=== PATIENT | female | born 1980 | race Caucasian/White ===

== ENCOUNTER 2017-02-12 11:53 | Day surgery (SDC) | payer OTHER, SELFPAY | END 2017-02-12 12:15 | PROVIDERS: Family Provider Emergency Medicine; Visit Provider Nurse Anesthetist, Certified Registered | DX: M51.16 Intervertebral disc disorders with radiculopathy, lumbar region (principal) | CPT/HCPCS: 62322; 62323; J1040; Q9966 ==

== ENCOUNTER 2017-11-14 22:07 | Emergency (ER) | payer OTHER, SELFPAY | END 2017-11-15 00:28 | disposition home or self-care (01) | PROVIDERS: Emergency Provider Emergency Medicine; Visit Provider Emergency Medicine | DX: N30.00 Acute cystitis without hematuria (principal); S39.011A Strain of muscle, fascia and tendon of abdomen, initial encounter; F17.210 Nicotine dependence, cigarettes, uncomplicated | CPT/HCPCS: 96372; 99283 ==

== ENCOUNTER → 2017-11-19 12:47 | Outpatient (POV) | payer OTHER, SELFPAY ==
[2017-11-19 13:01] VITALS: BP 155/108; PULSE 86; RESP 16; O2SAT 97; BMI 34.7
--- NOTE | 2017-11-19 13:08 | HMH.PAINSOAP ---
[facility] Pain Management SOAP Note Subjective:: This patient is a pleasant 37-year-old white female who we are treating for low back pain with lumbar radiculopathy symptoms. She was scheduled for lumbar epidural steroid injection last month however she had transportation issues and could not make it to that appointment. She still has some low back pain radiating down both legs. I do believe that she would benefit from a lumbar epidural steroid injection. She has failed all previous conservative measures including family day care provider, physical therapy and anti-inflammatory medications. She is currently on gabapentin which is helping. We will seek approval and plan on a repeat lumbar pleural steroid injection under fluoroscopy at L5-S1. Objective:: Alert and oriented ?3 in no acute distress. Motor strength of the lower extremities is 5/5. There is no gross sensory deficit. The patient does have a normal gait. Assessment:: Degenerative disc disease of lumbar spine with lumbar radiculopathy symptoms and bulging disc at L5-S1 Plan:: We will seek approval and plan on a repeat lumbar pleural steroid injection under fluoroscopy at L5-S1.
== END ==
PROVIDERS: Visit Provider Anesthesiology
DX: M51.16 Intervertebral disc disorders with radiculopathy, lumbar region (principal)
CPT/HCPCS: 99212

== ENCOUNTER 2017-11-26 14:35 | Day surgery (SDC) | payer OTHER, SELFPAY ==
[2017-11-26 15:38] VITALS: BP 136/84; PULSE 86; RESP 18; TEMP 36.4
[2017-11-26 15:48] VITALS: BP 173/98; PULSE 88; RESP 20
[2017-11-26 15:49] VITALS: BP 156/96; PULSE 86; RESP 20
--- NOTE | 2017-11-26 15:56 | P.PCN_ITS ---
- Procedure Date: 11/26/17 Time: 15:54 Anesthesiologist:: Zohaib Garibay CRNA Complications:: None Pre-procedure Diagnosis:: Degenerative disc disease lumbar spine. Lumbar radiculopathy symptoms per Post-procedure Diagnosis:: Same Indications for Procedure:: Very pleasant 37-year-old white female that responded extremely well to lumbar epidural steroid injections in the past. She presents today to our procedure clinic for lumbar epidural steroid injection at the L4-5 level. Patient describes her low back pain as constant, dull, aching Procedure Details:: Procedure: Lumbar epidural steroid injection under fluoroscopy Informed consent was obtained and the risks and benefits of the procedure were explained to the patient. The patient was taken to the procedure room and noninvasive monitors placed, including noninvasive blood pressure cuff and pulse oximeter. The back was viewed using C-arm Fluoroscopy and prepped using Betadine as a cleansing solution and the L4-L5 interspace was palpated. Skin and subcutaneous tissues were anesthetized using lidocaine 1.5% and a 25-gauge needle. After this, an 18-gauge Touhy epidural needle was placed into the L4-L5 interspace and advanced using fluoroscopic guidance and loss of resistance to air until the epidural space was encountered. After confirmation of needle placement in the epidural space, with dye, a solution containing lidocaine 1.5% , 4 mL and Depo-Medrol 80 mg were incrementally injected into the lumbar epidural space. The patient tolerated the procedure well with no complications. The patient was observed in the Pain Clinic and then discharged home neurologically intact. Plan and Disposition:: Patient was reevaluated 10 minutes post procedure. She is doing very well. She will return to see some pain clinic for further evaluation
[2017-11-26 16:23] VITALS: BP 150/94; PULSE 81; RESP 18; O2SAT 98
== END 2017-11-26 15:55 | disposition home or self-care (01) ==
LOC: SC.PAINP 14:38
PROVIDERS: Family Provider Emergency Medicine; Visit Provider Nurse Anesthetist, Certified Registered
DX: M51.16 Intervertebral disc disorders with radiculopathy, lumbar region (principal)
CPT/HCPCS: 62323; J1040; Q9966

== ENCOUNTER 2017-12-04 14:01 | Emergency (ER) | payer OTHER, SELFPAY ==
[2017-12-04 14:20] VITALS: BP 130/89; PULSE 107; RESP 18; TEMP 36.5; O2SAT 97; BMI 34.5
--- NOTE | 2017-12-04 15:12 | HMH.EDGENADL ---
ED Disposition Clinical Impression: Influenza Disposition: Home, Self-Care Condition on Discharge: Good Instructions: Influenza, DI for Nausea -- Adult Additional Instructions: Drink plenty of fluids, take the medications prescribed as directed, follow-up with PCP if no better within 2 days. Prescriptions: Oseltamivir Phosphate [Tamiflu 75mg Capsule] 75 mg PO BID #10 cap Referrals: Provider,Referral, MD [Primary Care Provider] - Time of Disposition: 15:13 - Critical Care Critical Care Time: No Attestation: On 12/04/17, the high probability of a clinically significant, sudden or life threatening deterioration of the following system(s) required my full and direct attention, intervention and personal management. The time I documented below is in addition to time spent performing reported procedures but includes the following listed in this critical care notation. Medical Decision Making - Medical Records Medical records reviewed: Yes: I reviewed the patient's medical records. Vital Signs: 12/04/17 14:20 12/04/17 15:19 Temperature 97.7 F 98.4 F Temperature Source Oral Pulse Rate 82 Pulse Rate [Right Brachial] 107 H Respiratory Rate 18 18 Blood Pressure 118/76 Blood Pressure [Right Arm] 130/89 Blood Pressure Mean [Right Arm] 102 Blood Pressure Source [Right Arm] Automatic Cuff Blood Pressure Position [Right Arm] Sitting 02 Sat by Pulse Oximetry 97 Oxygen Delivery Method Room Air - Lab Data Lab results reviewed: Yes: I reviewed the patient's lab results. Lab Results 12/04/17 14:30: Influenza Type A Ag Negative, Influenza Type B Ag Negative - [place] Inquiry Pt receiving controlled substance: No - Reevaluation(s) Time: 15:00 Reevaluation #1: Upon evaluation patient appears afebrile, in no acute distress, medically stable. Advice of results obtained, also need to cover her with Tamiflu as she has been exposed to influenza. She will alternate Motrin Tylenol for body aches and fever control, follow-up with PCP if not better within 2 days. General Adult HPI - General Chief complaint: Nausea/Vomiting/Diarrhea Stated complaint: ACHING ALL OVER VOMITING Time Seen by Provider: 12/04/17 14:45 Mode of Arrival: Ambulatory Source of Information: Patient Limitations: No Limitations Description of Symptoms (Recalled from ER Triage Doc. by RN): c/o bodyaches, vomiting, cough - History of Present Illness HPI narrative: There is a 37-year-old female patient presented to the emergency room with sore throat and congestion for the past 48 hours, has recently been exposed to sick family member diagnosed with influenza. Patient denies any recent travel. She has subjective fever, nonproductive cough, denies any shortness of breath. MD complaint: Sore throat, runny nose, subjective fever Onset (ago): day(s) (2) Location: head Radiation: non-radiation Severity: mild Severity scale (1-10): 2 Quality: aching Consistency: intermittent Relieving factors: none Associated symptoms: cough, fever/chills. negative: shortness of breath - Related Data Previous Rx's Medication Instructions Recorded Oseltamivir Phosphate [Tamiflu 75 mg PO BID #10 cap 12/04/17 75mg Capsule] Allergies Allergy/AdvReac Type Severity Reaction Status Date / Time No Known Allergies Allergy Verified 12/04/17 14:28 [facility] History I have reviewed the patient's past medical history: Yes Medical History: Denies:: Cancer, Diabetes Mellitus Type 1, Diabetes Mellitus Type 2, MRSA, Seizures Other Medical History: Reports: Arthritis, Sinus Problems. Denies: Blood Transfusion Reaction Other Surgeries: Yes: Sinus Surgery, Tubal Ligation, Ureter Stent Amputation: No Fractures: No - *Social History Smoking Status: Current every day smoker Tobacco Type: cigarettes Alcohol Intake: never Occupational Status: unemployed Housing: house - Psychiatric History Expresses thoughts of harming self/others: No
[2017-12-04 15:19] VITALS: BP 118/76; PULSE 82; RESP 18; TEMP 36.9; O2SAT 96
== END 2017-12-04 15:21 | disposition home or self-care (01) ==
PROVIDERS: Emergency Provider Emergency Medicine; Family Provider Emergency Medicine
DX: J11.1 Influenza due to unidentified influenza virus with other respiratory manifestations (principal); F17.210 Nicotine dependence, cigarettes, uncomplicated
CPT/HCPCS: 87275; 87276; 99282

== ENCOUNTER → 2018-09-01 09:45 | Outpatient (POV) | payer OTHER, SELFPAY ==
[2018-09-01 10:02] VITALS: BP 149/95; PULSE 89; RESP 18; O2SAT 98; BMI 30.2
--- NOTE | 2018-09-01 10:57 | P.CONS_ITS ---
[facility] Pain Management SOAP Note Subjective:: Patient is a pleasant 37-year-old white female who presents today for follow-up. Patient states that she has had worsening back pain and radicular symptoms. Patient is now having right leg pain along with right leg weakness. Patient does not have a recent MRI. I believe the patient may need to see a neurosurgeon. We will get an updated MRI for her. Patient is also on gabapentin however she is not on her current anti-inflammatory regimen. We will start her on one. Patient rates her pain a 7 out of 10 ROS General: no recent weight change, no fever, no sleep disturbances Respiratory: no cough, no shortness of air, no recurring pulmonary infections Cardiovascular/Peripheral Vascular: No chest pain, No palpitations, no edema, no shortness of breath. Gastrointestinal: no incontinence, normal bowel movements reported Genitourinary: no incontinence Musculoskeletal: Back pain, leg pain Psychiatric: normal mood/ affect, [denies depression], [denies anxiety] Neurological: Weakness in the right leg, [denies balance issues] Objective:: Physical Exam General: Alert and oriented x3, no acute distress, pleasant and cooperative, [on room air] Lungs: Resps E/U, Symmetrical chest expansion, Eyes: PERRL Musculoskeletal: Flexion and extension of lumbar spine somewhat guarded secondary to pain, deep tendon reflexes normal, strength in upper and lower extremities [5/5], [abnormal gait noted] Neurological: speech clear, cleaner carpet and upholstery equal, no gross sensory deficits Assessment:: Degenerative disc disease lumbar spine with lumbar radiculopathy Plan:: Schedule lumbar MRI for the patient due to her new symptoms I believe that will be beneficial. Patient might need a neurosurgical consultation. We will also call in 30 mg 1 p.o. daily along with her gabapentin 300 mg 1 p.o. 3 times daily. Follow-up with the patient after her MRI. Dr. Estrada is reviewed this chart and agrees with this plan of care. This note was dictated using voice recognition software and may contain errors or omissions
== END ==
PROVIDERS: Family Provider Emergency Medicine; Visit Provider Clinical Nurse Specialist Family Health
DX: M51.16 Intervertebral disc disorders with radiculopathy, lumbar region (principal)
CPT/HCPCS: 99213

== ENCOUNTER → 2018-09-12 15:34 | Outpatient (CLI) | payer OTHER, SELFPAY ==
--- NOTE | 2018-09-12 15:37 | MR_ITS ---
MR lumbar spine wo con, MR 3-d myelogram/MRCP Ordering Physician: Rachael Barraza Patient Age: 37 years: Female HISTORY: ITS.REASON: BACK PAIN low back pain for years bilateral hip and leg pain and some numbness and tingling. TECHNIQUE: Sagittal STIR, T1, T2, axial T1 and T2. On 1.5T Siemens wide bore MRI. 3-D MR myelogram image set obtained & performed on MRI workstation. Additional sagittal thin section T2 weighted dataset obtained from this latter acquisition as well (---76 CPT). No contrast utilized today COMPARISON :.. August 2014 MRI.. February 2014.r plain films lumbar spine CT abdomen pelvis 01/29/2017 FINDINGS The lumbar vertebral bodies are intact with no compression fracture or lesion. The conus ends appropriately at L1/L2 level L5/S1.:. Moderate broad-based right paracentral disc protrusion also slightly pronounced today than previous MR August 2014 comparison study. This Disc protrusion extends just over 7 mm mm posteriorly, and nearly 14 mm at its base. It effaces/ indents the rightAnterior aspect & corner of thecal sac. It displaces the right S1 and S2 nerve root here.. It yields moderate/generous encroachment upon the right recess and entrance to the right foramen.-Which may have impacted the right L5 nerve root. Mild facet hypertrophy bilaterally.. L4/5. Asymmetric disc bulge, with mild broad-based disc protrusion to the left yields moderate encroachment upon the left recess and left foramen. Very Slightly effaces anterior left corner and aspect of thecal sac where a could potentially impact left L5 and possibly left S1 nerve root.. Scant facet arthropathy L3/4. Disc intact. L2/3. Disc intact. L1/2. Disc intact.... T12/L1, T11/12 disc intact. Unremarkable. 3-D MR myelogram image set demonstrates: Mild anterior indentation upon thecal sac to the right L5/S1 noted,. Scant anterior indentation the thecal sac to the left at L4/5. IMPRESSION: ...... L5/S1. Broad-based moderate size right paracentral disc protrusion. Slightly more prominent than 2013.. Effaces thecal sac to the right, With moderate encroachment right recess & entry right foramen.- This disc protrusion displaces the right S1 & S2 nerve root posteriorly; and or could also possibly affect right L5 nerve root at foramen. Clinical correlation required Neurosurgical consult warranted L4/5. Asymmetric leftward disc bulge-with minimal broad-based disc protrusion towards to the left continuing through left foramen.. Yields Moderate encroachment left foramen. And slightly effaces left anterior corner of thecal sac. Findings have progressed somewhat since 2014 MR.
== END ==
PROVIDERS: PCP Nurse Practitioner Family; Visit Provider Clinical Nurse Specialist Family Health
DX: M54.9 Dorsalgia, unspecified (principal)
CPT/HCPCS: 72148; 76376

== ENCOUNTER → 2018-09-15 10:37 | Outpatient (POV) | payer OTHER, SELFPAY ==
[2018-09-15 10:52] VITALS: BP 141/91; PULSE 70; RESP 18; O2SAT 98; BMI 30.2
--- NOTE | 2018-09-15 12:02 | HMH.PAINSOAP ---
[facility] Pain Management SOAP Note Subjective:: Patient is a pleasant 37-year-old white female who presents today for follow-up after her new MRI. Patient does have L5-S1 moderate broad-based right paracentral disc protrusions along with disc protrusion indenting the right anterior aspect and corner of the thecal sac and displaces the right S1 and S2 nerve roots. This is per the radiology report. Patient and I had a discussion in regards to her next step. We will send her for neurosurgical consultation. Patient has not been seen by neurosurgeon previously. Patient was made aware that she needs to receive her radiology disc. She rates her pain a 7 out of 10 today. ROS General: no recent weight change, no fever, no sleep disturbances Respiratory: no cough, no shortness of air, no recurring pulmonary infections Cardiovascular/Peripheral Vascular: No chest pain, No palpitations, no edema, no shortness of breath. Gastrointestinal: no incontinence, normal bowel movements reported Genitourinary: no incontinence Musculoskeletal: Back pain, leg pain Psychiatric: normal mood/ affect Neurological: [denies weakness in extremities], [denies balance issues] Objective:: Physical Exam General: Alert and oriented x3, no acute distress, pleasant and cooperative, [on room air] Lungs: Resps E/U, Symmetrical chest expansion, Eyes: PERRL Musculoskeletal: Flexion and extension of lumbar spine somewhat guarded secondary to pain, deep tendon reflexes normal, strength in upper and lower extremities [5/5], [abnormal gait noted] Neurological: speech clear, site safety coordinator equal, no gross sensory deficits Assessment:: Degenerative disc disease lumbar spine with lumbar radiculopathy Plan:: We will schedule her to be seen at [facility] as far as a neurosurgical consult in [place]. Patient states this is much closer to her. I will follow-up with the patient on an as-needed basis after her consultation. This note was dictated using voice recognition software and may contain errors or omissions
--- NOTE | 2018-09-15 12:07 | P.CONS_ITS ---
[facility] Pain Management SOAP Note Subjective:: Patient is a pleasant 37-year-old white female who presents today for follow-up after her new MRI. Patient does have L5-S1 moderate broad-based right paracentral disc protrusions along with disc protrusion indenting the right anterior aspect and corner of the thecal sac and displaces the right S1 and S2 nerve roots. This is per the radiology report. Patient and I had a discussion in regards to her next step. We will send her for neurosurgical consultation. Patient has not been seen by neurosurgeon previously. Patient was made aware that she needs to receive her radiology disc. She rates her pain a 7 out of 10 today. ROS General: no recent weight change, no fever, no sleep disturbances Respiratory: no cough, no shortness of air, no recurring pulmonary infections Cardiovascular/Peripheral Vascular: No chest pain, No palpitations, no edema, no shortness of breath. Gastrointestinal: no incontinence, normal bowel movements reported Genitourinary: no incontinence Musculoskeletal: Back pain, leg pain Psychiatric: normal mood/ affect Neurological: [denies weakness in extremities], [denies balance issues] Objective:: Physical Exam General: Alert and oriented x3, no acute distress, pleasant and cooperative, [on room air] Lungs: Resps E/U, Symmetrical chest expansion, Eyes: PERRL Musculoskeletal: Flexion and extension of lumbar spine somewhat guarded secondary to pain, deep tendon reflexes normal, strength in upper and lower extremities [5/5], [abnormal gait noted] Neurological: speech clear, energy advisor equal, no gross sensory deficits Assessment:: Degenerative disc disease lumbar spine with lumbar radiculopathy Plan:: We will schedule her to be seen at [facility] as far as a neurosurgical consult in [place]. Patient states this is much closer to her. I will follow- up with the patient on an as-needed basis after her consultation. This note was dictated using voice recognition software and may contain errors or omissions
== END ==
PROVIDERS: PCP Nurse Practitioner Family; Visit Provider Clinical Nurse Specialist Family Health
DX: M51.16 Intervertebral disc disorders with radiculopathy, lumbar region (principal)
CPT/HCPCS: 99213

== ENCOUNTER → 2019-06-30 09:38 | Outpatient (POV) | payer OTHER, SELFPAY ==
[2019-06-30 09:52] VITALS: BP 150/89; PULSE 87; RESP 18; O2SAT 98; BMI 31.1
--- NOTE | 2019-06-30 10:12 | HMH.PAINSOAP ---
[facility] Pain Management SOAP Note Subjective:: She is a pleasant 38-year-old white female who we have not seen for about a year. Patient states that she went with a man to [place] however it did not work out so she called her ex- to come get her. Since then she is now returned she states her pain is a 7 out of 10 in her low back and legs. Patient states she is not interested in injective therapy since they make it worse . Patient was sent to Dr. Palomino for evaluation however she states she does not remember this. Patient no showed for appointment with Dr. Palomino. Patient is currently on gabapentin 300 mg 1 p.o. 3 times daily. She denies side effects from medication. [facility] #[id number] she has not been taking an anti-inflammatory medication. ROS General: no recent weight change, no fever, no sleep disturbances Respiratory: no cough, no shortness of air, no recurring pulmonary infections Cardiovascular/Peripheral Vascular: No chest pain, No palpitations, no edema, no shortness of breath. Gastrointestinal: no incontinence, normal bowel movements reported Genitourinary: no incontinence Musculoskeletal: Back pain, leg pain Psychiatric: normal mood/ affect, [denies depression], [denies anxiety] Neurological: [denies weakness in extremities], [denies balance issues] Objective:: Physical Exam General: Alert and oriented x3, no acute distress, pleasant and cooperative, [on room air] Lungs: Resps E/U, Symmetrical chest expansion, Eyes: PERRL Musculoskeletal: Flexion and extension of lumbar spine somewhat guarded secondary to pain, deep tendon reflexes normal, strength in upper and lower extremities [5/5], [abnormal gait noted] Neurological: speech clear, desk interviewer equal, no gross sensory deficits Assessment:: Degenerative disc disease lumbar spine with lumbar radiculopathy Plan:: We will set her up an appointment with Dr. Palomino I explained to her she has to go to this appointment. We will start her on diclofenac 75 mg 1 p.o. twice daily along with gabapentin 300 mg 1 p.o. 4 times daily. We will see the patient back after her consultation and reassess her symptoms at that time. She is been instructed to call the office if she has any issues prior to his next appointment. Dr. Estrada has reviewed this note and agrees with this plan of care. This note was dictated using voice recognition software and may contain errors or omissions Pain Management Hx Components *Have you ever received a pneumonia vaccine?: No *Have you received a flu vaccine this season?: No - *Social History *Occupational Status:: other *Travel in the last 8 weeks: None
--- NOTE | 2019-06-30 10:16 | P.CONS_ITS ---
[facility] Pain Management SOAP Note Subjective:: She is a pleasant 38-year-old white female who we have not seen for about a year. Patient states that she went with a man to [place] however it did not work out so she called her ex- to come get her. Since then she is now returned she states her pain is a 7 out of 10 in her low back and legs. Patient states she is not interested in injective therapy since they make it worse . Patient was sent to Dr. Palomino for evaluation however she states she does not remember this. Patient no showed for appointment with Dr. Palomino. Patient is currently on gabapentin 300 mg 1 p.o. 3 times daily. She denies side effects from medication. [facility] #[id number] she has not been taking an anti-infla mmatory medication. ROS General: no recent weight change, no fever, no sleep disturbances Respiratory: no cough, no shortness of air, no recurring pulmonary infections Cardiovascular/Peripheral Vascular: No chest pain, No palpitations, no edema, no shortness of breath. Gastrointestinal: no incontinence, normal bowel movements reported Genitourinary: no incontinence Musculoskeletal: Back pain, leg pain Psychiatric: normal mood/ affect, [denies depression], [denies anxiety] Neurological: [denies weakness in extremities], [denies balance issues] Objective:: Physical Exam General: Alert and oriented x3, no acute distress, pleasant and cooperative, [on room air] Lungs: Resps E/U, Symmetrical chest expansion, Eyes: PERRL Musculoskeletal: Flexion and extension of lumbar spine somewhat guarded secondary to pain, deep tendon reflexes normal, strength in upper and lower extremities [5/5], [abnormal gait noted] Neurological: speech clear, service technician copier equal, no gross sensory deficits Assessment:: Degenerative disc disease lumbar spine with lumbar radiculopathy Plan:: We will set her up an appointment with Dr. Palomino I explained to her she has to go to this appointment. We will start her on diclofenac 75 mg 1 p.o. twice daily along with gabapentin 300 mg 1 p.o. 4 times daily. We will see the moi ent back after her consultation and reassess her symptoms at that time. She is been instructed to call the office if she has any issues prior to his next appointment. Dr. Estrada has reviewed this note and agrees with this plan of care. This note was dictated using voice recognition software and may contain errors or omissions Pain Management Hx Components *Have you ever received a pneumonia vaccine?: No *Have you received a flu vaccine this season?: No - *Social History *Occupational Status:: other *Travel in the last 8 weeks: None
== END ==
PROVIDERS: Visit Provider Clinical Nurse Specialist Family Health
DX: M51.16 Intervertebral disc disorders with radiculopathy, lumbar region (principal)
CPT/HCPCS: 99212

== ENCOUNTER → 2019-12-03 13:34 | Outpatient (CLI) | payer MEDICAID, SELFPAY ==
[2019-12-03 14:07] LABS: Basophils % 0.5 % (0.1-2.0); Eosinophils # 0.2 K/mm3 (0.0-0.4); Eosinophils % 3.1 % (0.1-12.0); Hematocrit 39.1 % (37.0-47.0); Lymphocytes # 1.9 K/mm3 (0.7-4.5); Lymphocytes % 27.2 % (10-50); Mean Corpuscular HGB Conc 33.2 g/dL (31.8-35.4); Mean Corpuscular Hemoglobin 29.5 pg (27.0-31.2); Mean Corpuscular Volume 89.1 fl (81-99); Mean Platelet Volume 8.2 fl (7.4-10.4); Monocytes # 0.4 K/mm3 (0.1-1.0); Neutrophils # 4.5 K/mm3 (1.8-7.8); Neutrophils % 64.2 % (37.0-80.0); Platelet Count 378 K/mm3 (142-424); Red Blood Count 4.39 M/mm3 (4.20-5.40); Red Cell Distribution Width 12.9 % (11.5-17.5)
[2019-12-03 14:43] LABS: Alanine Aminotransferase 24 U/L (12-78); Albumin Level 3.7 gm/dL (3.4-5.0); Albumin/Globulin Ratio 1.1 (1.1-1.8); Alkaline Phosphatase 56 U/L (46-116); Anion Gap 15.8 mEq/L (5-15); Aspartate Amino Transferase 20 U/L (15-37); Bilirubin,Total 0.2 mg/dL (0.2-1.0); Blood Urea Nitrogen 9 mg/dL (7-18); Carbon Dioxide 25 mmol/L (21.0-32.0); Chloride 103 mmol/L (98-107); Chol/HDL Ratio 3.9 (1-3.5); Cholesterol 193 mg/dL (140-200); Creatinine,Serum 0.78 mg/dL (0.55-1.02); Estimated Glomerular Filt Rate 82 ml/min (>60); GFR (African American) 99 ML/MIN (>60); Globulin 3.3 gm/dl (1.3-3.2); Glucose 92 mg/dL (74-106); HDL Cholesterol 50 mg/dL (29-89); LDL Cholesterol 125 mg/dL (0-130); Potassium 3.8 mmoL/L (3.5-5.1); Sodium 140 mmol/L (136-145); T4 (Thyroxine) 10.9 ug/dl (4.7-13.3); Thyroid Stimulating Hormone 1.48 uIU/ml (0.358-3.740); Triglycerides 89 mg/dL (30-200); VLDL Cholesterol 18 mg/dL (0-40)
[2019-12-03 14:44] LABS: Calcium 8.8 mg/dL (8.5-10.1)
[2019-12-04 09:22] LABS: Vitamin D 25 Hydroxy 20.1 ng/mL (30.0-100.0)
== END ==
PROVIDERS: Visit Provider Nurse Practitioner Family
DX: R53.83 Other fatigue (principal); E55.9 Vitamin D deficiency, unspecified
CPT/HCPCS: 80053; 80061; 82652; 84436; 84443; 85025